=== PATIENT | female | born 1995 | race African-American/Black ===

== ENCOUNTER 2020-10-02 18:25 | Emergency (ER) | payer OTHER ==
--- NOTE | 2020-10-02 19:17 | ED Physician Documentation ---
PD HPI ABD PAIN - Stated complaint Stated Complaint: VOMITING BLOOD - Chief complaint Chief Complaint: Abd Pain - History obtained from History obtained from: Patient - Additional information Additional information: 25-year-old woman who might be slightly late on her menses developed vomiting upon awakening at 10 this morning. She vomited several times and then coughed up just a trace of blood afterwards with mixed with sputum which made her quite anxious. She denies abdominal pain or current nausea. Review of Systems Constitutional: denies: Fever, Chills Cardiac: denies: Chest pain / pressure, Palpitations Respiratory: denies: Dyspnea, Cough PD PAST MEDICAL HISTORY - Present Medications Home Medications: Ambulatory Orders Medication Instructions Recorded Confirmed Ondansetron Odt [Zofran] 4 mg TL Q6H PRN #10 tablet 10/02/20 - Allergies Allergies/Adverse Reactions: Allergies Allergy/AdvReac Type Severity Reaction Status Date / Time No Known Drug Allergies Allergy Verified 10/02/20 18:55 PD ED PE NORMAL - Vitals Vital signs reviewed: Yes - General General: Alert and oriented X 3 (She is anxious but otherwise no distress) - Cardiac Cardiac: RRR, No murmur - Respiratory Respiratory: No respiratory distress, Clear bilaterally - Abdomen Abdomen: Normal bowel sounds, Soft, Non tender - Neuro Neuro: Alert and oriented X 3, Normal speech Results - Vitals Vitals: Vital Signs - 24 hr 10/02/20 10/02/20 10/02/20 18:52 18:54 19:32 Temperature 37.1 C 37.2 C Heart Rate 76 68 80 Respiratory 16 16 16 Rate Blood Pressure 120/61 121/73 125/74 O2 Saturation 100 98 96 Oxygen O2 Source Room air - Labs Labs: Laboratory Tests 10/02/20 19:34 Urine HCG, Qual NEGATIVE PD MEDICAL DECISION MAKING - ED course ED course: 25-year-old woman had a few episodes of vomiting today, feels better but is quite anxious because then she coughed and had some blood-streaked sputum. Her description of the blood sounds like it was a very small amount, and she was reassured that this is not consistent with any serious diagnosis. Departure - Departure Disposition: 01 Home, Self Care Clinical Impression: Nathaly-Martinez syndrome Vomiting Qualifiers: Vomiting type: unspecified Vomiting Intractability: non-intractable Nausea presence: with nausea Qualified Code(s): R11.2 - Nausea with vomiting, unspecified Condition: Good Record reviewed to determine appropriate education?: Yes Instructions: ED Nausea Vomiting Prescriptions: Ondansetron Odt [Zofran] 4 mg TL Q6H PRN #10 tablet PRN Reason: Nausea / Vomiting Comments: Call your doctor to arrange a follow-up appointment, make the next available appointment. In the interim, return anytime if worse or if new symptoms develop. Discharge Date/Time: 10/02/20 19:59
[2020-10-02 19:34] VITALS: BP 125/74
[2020-10-02 19:43] LABS: HCG UR QUAL NEGATIVE
== END 2020-10-02 19:59 | disposition home or self-care (01) ==
LOC: ED 18:25
DX: K22.6 Gastro-esophageal laceration-hemorrhage syndrome (principal); R11.2 Nausea with vomiting, unspecified
CPT/HCPCS: 81025; 99283; 99284

== ENCOUNTER 2021-06-27 08:00 | Outpatient (CLI) | payer OTHER | END 2021-06-27 23:59 | disposition home or self-care (01) | LOC: LAB.N 08:00 | PROVIDERS: ATTEND Nurse Practitioner | DX: U07.1 COVID-19 (principal) | CPT/HCPCS: 87275; 87276 ==